=== PATIENT | female | born 1985 | race Caucasian/White ===

== ENCOUNTER 2025-04-13 13:42 | Emergency (ER) | payer OTHER, SELFPAY ==
[2025-04-13 13:48] VITALS: BP 127/86
--- NOTE | 2025-04-13 14:54 | ED.GENMED ---
History of Present Illness
<MIKHAIL Kent Jr. Last Filed: 04/13/25 19:54>
General
Chief Complaint: Abdominal Pain
Source: patient
Exam Limitations: none
Time Seen by Provider: 04/13/25 14:38
Nursing documentation reviewed up to this point in time: agreed with
History of Present Illness
History of Present Illness:
39-year-old female presenting to the emergency department today with concerns of right-sided abdominal pain diagnosed with gallbladder distention and sludge at [facility] 4 days ago. She left planning on following up with general surgery but
ongoing to make an appointment. Claims that she has had worsening discomfort since. Denies any vomiting chest pain shortness of breath or fevers.
Review of Systems
<MIKHAIL eKnt Jr. Last Filed: 04/13/25 19:54>
Review of Systems
Allergies reviewed?: Yes
All Other Systems: ROS reviewed and negative except as documented in HPI and ROS
Phy Exam
<MIKHAIL Kent Jr. Last Filed: 04/13/25 19:54>
Physical Exam
Physical Exam:
GENERAL: Alert , in no apparent distress
EYE: pupils equal and reactive
NECK: Supple, no significant adenopathy.
ENT: o/p clr, mmm.
CARDIAC: Regular rate and rhythm .
LUNGS: Clear breath sounds bilaterally, no acute respiratory distress, no wheezes/rales/rhonchi
ABDOMEN: Tenderness mainly to the right side of the abdomen pain to the right upper quadrant but negative Allen's.
NEUROLOGICAL: Alert and oriented, no focal neuro deficits
SKIN: Warm and dry, skin intact.
MUSCULOSKELETAL: No edema, well perfused.
PSYCH: Normal and appropriate interaction.
Course
<MIKHAIL Kent Jr. Last Filed: 04/13/25 19:54>
Orders/Labs/Results
Orders:
Orders
04/13/25 14:47
Ketorolac [Toradol] 15 mg IV NOW STA
04/13/25 14:48
CT Abd/Pel (IV only)-DH only Urgent
Comment:
Reason For Exam: right sided abd pain radiating to pelvis
04/13/25 14:51
Complete Blood Count/With Diff Urgent
04/13/25 15:35
Comprehensive Metabolic Panel Urgent
HCG, Serum Qualitative Screen Urgent
Comment: ADD ON
Lipase Urgent
04/13/25 16:41
Urinalysis Reflex To Culture Urgent
Date Specimen was Collected: 04/13/25
Time Specimen was Collected: 15:48
04/13/25 17:45
Add On- LAB Urgent
Tests Added?: qual hcg
04/13/25 19:03
US Pelvis W Transvag Combined Urgent
Reason For Exam: right pelvic pain
04/13/25 19:40
US Abdomen Complete/Upper Urgent
Comment:
Reason For Exam: GB issue ruq pain
Abnormal Lab Results
04/13/25 04/13/25
14:51 15:35
Absolute Neuts (auto) 6.9 H 10^3/uL
(1.4-6.5)
Neutrophils % 75.8 H %
(42.2-75.2)
Lymphocytes % 15.8 L %
(20.5-51.1)
Sodium 132 L mmol/L
(135-145)
Creatinine 0.5 L mg/dL
(0.6-1.0)
Glucose 100 H mg/dl
(70-99)
04/13/25 14:51
04/13/25 15:35
Vital Signs
Initial and Last Documented VS:
Initial Vital Signs
Temp Pulse Resp BP Pulse Ox
98.2 F 86 16 127/86 100
04/13/25 13:48 04/13/25 13:48 04/13/25 13:48 04/13/25 13:48 04/13/25 13:48
Last Documented Vital Signs
Temp Pulse Resp BP Pulse Ox
97.4 F 78 18 117/63 100
04/13/25 16:46 04/13/25 16:46 04/13/25 16:46 04/13/25 16:46 04/13/25 16:46
<Mandy Lewis PA-C - Last Filed: 04/13/25 23:18>
Orders/Labs/Results
Orders:
Orders
04/13/25 14:47
Ketorolac [Toradol] 15 mg IV NOW STA
04/13/25 14:48
CT Abd/Pel (IV only)-[facility] only Urgent
Comment:
Reason For Exam: right sided abd pain radiating to pelvis
04/13/25 14:51
Complete Blood Count/With Diff Urgent
04/13/25 15:35
Comprehensive Metabolic Panel Urgent
HCG, Serum Qualitative Screen Urgent
Comment: ADD ON
Lipase Urgent
04/13/25 16:41
Urinalysis Reflex To Culture Urgent
Date Specimen was Collected: 04/13/25
Time Specimen was Collected: 15:48
04/13/25 17:45
Add On- LAB Urgent
Tests Added?: qual hcg
04/13/25 19:03
US Pelvis W Transvag Combined Urgent
Reason For Exam: right pelvic pain
04/13/25 19:40
US Abdomen Complete/Upper Urgent
Comment:
Reason For Exam: GB issue ruq pain
Abnormal Lab Results
04/13/25 04/13/25
14:51 15:35
Absolute Neuts (auto) 6.9 H 10^3/uL
(1.4-6.5)
Neutrophils % 75.8 H %
(42.2-75.2)
Lymphocytes % 15.8 L %
(20.5-51.1)
Sodium 132 L mmol/L
(135-145)
Creatinine 0.5 L mg/dL
(0.6-1.0)
Glucose 100 H mg/dl
(70-99)
04/13/25 14:51
04/13/25 15:35
Vital Signs
Initial and Last Documented VS:
Initial Vital Signs
Temp Pulse Resp BP Pulse Ox
98.2 F 86 16 127/86 100
04/13/25 13:48 04/13/25 13:48 04/13/25 13:48 04/13/25 13:48 04/13/25 13:48
Last Documented Vital Signs
Temp Pulse Resp BP Pulse Ox
97.4 F 78 18 117/63 100
04/13/25 16:46 04/13/25 16:46 04/13/25 16:46 04/13/25 16:46 04/13/25 16:46
<Benjamin Ybarra Jr., PA-C - Last Filed: 04/13/25 19:54>
MDM/Problems Addressed
MDM/Problems Addressed:
39-year-old female presenting to the emergency department today with concerns of right-sided abdominal pain. Was diagnosed with gallbladder sludge a few days ago at [facility]. Here vital signs are normal patient does have tenderness
throughout the right side of the abdomen plan for CT scan for further assessment. CT scan showing similar findings that patient described from previous [facility] assessment 3 days ago. She was found to have a right ovarian cyst a hemorrhagic
cyst is most likely as well as Adeola lithiasis with mild diffuse intrahepatic biliary dilatation. Labs are unremarkable otherwise normal bili alk phos and LFTs. Symptoms seem to be more severe to the lower abdomen. Concerning this plan for
ultrasound for further assessment.
<Benjamin Ybarra Jr., PA-C - Last Filed: 04/13/25 19:54>
*Pulse Oximetry
SaO2: 100
Oxygen Mode of Delivery: Room air
<Mandy Lewis PA-C - Last Filed: 04/13/25 23:18>
*Pulse Oximetry
Patient hypoxic: no
*Critical Care Note
Total Time (30-74mins, 75-104mins- exclusive of procedures): Not Applicable
<Mandy Lewis PA-C - Last Filed: 04/13/25 23:18>
Update Note
Update Note:
Update: Assumed care of patient pending ultrasound reports. Abdominal ultrasound reveals cholelithiasis without any other findings consistent with acute cholecystitis. Pelvic ultrasound reveals a 4 cm right ovarian endometrioma as well as a simple
2 cm cyst in right ovary. No evidence of ovarian torsion. On reassessment�she states her pain has improved significantly since Toradol. The remainder of her persistent discomfort is all located in her lower abdomen. Her abdomen is soft with mild
tenderness in pelvic region. No rebound tenderness or guarding. She has she is afebrile with normal labs�no evidence of acute cholecystitis. No tenderness in right upper quadrant and negative Allen sign. At this point, suspect symptoms
secondary to right sided ovarian cyst. However�with known cholelithiasis do feel she should continue to follow low-fat diet and follow-up with general surgery outpatient. Lengthy discussion regarding strict return precautions. Patient and
patient's family comfortable with discharge home.
ED Attending Note
<Benjamin Ybarra Jr., PA-C - Last Filed: 04/13/25 19:54>
-
Portions of this chart may have been created with voice recognition software.� Occasional wrong word or��sound alike� substitutions may have occurred due to the inherent limitations of voice recognition software.
Discharge Plan
Departure
Patient Disposition: Home (Routine Discharge)
Date of Disposition: 04/13/25
Time of Disposition: 21:44
Patient with high blood pressure during this ER visit?: No
Condition: Good
Covid-19: Not Applicable
Discharge Problem:
Ovarian cyst, Cholelithiasis
Instructions: Ovarian Cyst (DC), Gallstones (DC)
Referrals:
John Valverde MD [Family Provider, Internal Medicine]
John Casarez MD [Active, Surgical] - Follow up in 2-3 days
Juany Currie MD [Active, Gynecology] - Follow up in 2-3 days
Activity Restrictions/Additional Instructions:
You came to the emergency department today with concerns of abdominal pain. You are found to have an ovarian cyst as well as gallstones. Please closely as an outpatient for these. Return for any worsening, new or concerning symptoms.
Interventions
Interventions:
*Risk Screen - Suicide Last Done: 04/13/25 13:48
*General Assessment Last Done: 04/13/25 13:48
*Neglect/Abuse Screening Last Done: 04/13/25 22:39
*ED- Fall Risk Assessment Last Done: 04/13/25 22:39
*ED COVID-19 Vaccine History Last Done: 04/13/25 22:39
*ED Influenza Vaccine History Last Done: 04/13/25 22:39
*Nursing Disposition Last Done: 04/13/25 22:39
HG-Vfmrbj-Sropusvbtd Assessment Last Done: 04/13/25 15:10
Discharge Date and Time
Discharge Date/Time: 04/13/25 22:39
Print Language: LIBYAN
[2025-04-13 15:15] LABS: Hematocrit 39.4 % (37.0-47.0); Hemoglobin 13.2 g/dL (12.0-16.0); Mean Corp Hgb Conc. 33.5 g/dL (33.0-37.0); Mean Corpuscular Volume 88.3 fL (81.0-99.0); Nucleated Red Blood Cells % 0 %; Platelet Count 307 10^3/uL (130-400); Red Cell Dist. Width 12.4 % (11.5-14.5)
[2025-04-13] MEDS: TORADOL 15 MG IV (15:22)
[2025-04-13 16:01] LABS: ALT (SGPT) 14 U/L (0-35); AST (SGOT) 20 U/L (14-36); Albumin 4.6 g/dl (3.5-5.0); Alkaline Phosphatase 56 U/L (38-126); Blood Urea Nitrogen 10 mg/dl (7-17); Calcium 9.1 mg/dl (8.4-10.2); Carbon Dioxide 29 mmol/L (22-30); Chloride 100 mmol/L (98-107); Glucose 100 mg/dl (70-99); Lipase 58 U/L (23-300); Potassium 4.3 mmol/L (3.5-5.1); Sodium 132 mmol/L (135-145); Total Protein 8.1 g/dl (6.3-8.2); eGFR > 60.00
[2025-04-13 16:46] VITALS: BP 117/63
[2025-04-13 16:50] LABS: Urine Character Clear (Clear)
[2025-04-13 18:29] LABS: HCG, Serum Qualitative Screen Negative
== END 2025-04-13 22:39 | disposition home or self-care (01) ==
LOC: EMR 13:42
PROVIDERS: Physician Assistant; EMERGENCY PHYSICIAN Emergency Medicine; FAMILY PHYSICIAN Student in an Organized Health Care Education/Training Program
DX: N83.291 Other ovarian cyst, right side (principal); K80.20 Calculus of gallbladder without cholecystitis without obstruction; N80.121 Deep endometriosis of right ovary
CPT/HCPCS: 99284; 96374; 74177; 76700; 76830; 76856; 80053; 81003; 83690; 84703; 85025; Q9967